=== PATIENT | male | born 1970 | race Caucasian/White ===

== ENCOUNTER → 2021-06-25 | Outpatient (CLI) | LOC: LABNPT 08:28 | PROVIDERS: ATTEND Orthopaedic Surgery | DX: Z01.812 Encounter for preprocedural laboratory examination (principal); Z20.822 Contact with and (suspected) exposure to COVID-19 | CPT/HCPCS: 87635; 87636 ==

== ENCOUNTER → 2021-06-30 | Outpatient (CLI) | payer OTHER | LOC: LABNPT 08:13 | PROVIDERS: ATTEND Internal Medicine | DX: Z20.822 Contact with and (suspected) exposure to COVID-19 (principal) | CPT/HCPCS: 87636 ==

== ENCOUNTER 2022-07-09 05:34 | Outpatient (CLI) | payer OTHER ==
[~2022-07-09] VITALS: Ht 172.7 cm; Wt 79.4 kg
[2022-07-09] MEDS ORDERED: MAGN1TAB31 PO (11:45)
[2022-07-09] MEDS ORDERED: PANT40TA52 PO (11:45)
[2022-07-09] MEDS ORDERED: ESCI20TA PO (11:45)
[2022-07-09] MEDS ORDERED: LANS15CA PO (11:45)
[2022-07-09] MEDS ORDERED: CLON0.252 PO (11:45)
== END 2022-07-09 11:52 | disposition home or self-care (01) ==
LOC: PREOP 05:34
PROVIDERS: ATTEND Internal Medicine
DX: Z01.818 Encounter for other preprocedural examination (principal)

== ENCOUNTER 2022-07-16 10:40 | Day surgery (SDC) | payer OTHER ==
--- NOTE | 2022-07-09 07:20 | HISTORY AND PHYSICAL ---
PANENDOSCOPY HISTORY AND PHYSICAL HISTORY OF PRESENT ILLNESS: The patient is a 51-year-old white male who reports at least a 3-year history of significant reflux symptoms. This is despite taking pantoprazole b.i.d. He had a recent flare 2 or 3 weeks ago reporting burning sensation that radiates up to the back of the throat and will sometimes have a bad taste in the back of his mouth associated with this. Food initially makes it better, but then usually within minutes of stopping, symptoms will recur. He will get some temporary benefit from Gaviscon, but he does not like the taste. He had an EGD done three years ago that he reports one biopsy from the antrum was obtained because of some mild appearing gastritis that he was Helicobacter negative at that time. He does not believe that any esophageal biopsies were obtained. Does not recall whether or not a hiatal hernia was noted. He has not previously accomplished colonoscopy. He does not take aspirin or nonsteroidal medication. He has been having some difficulty with sleep. There has been a question about a sleep disorder, possible narcolepsy. He is in the process of getting approval for sleep latency test. He has a history of generalized anxiety and he thinks that this is worse off of Lexapro that he had only stopped over concerns that might have an impact on a sleep latency study. He denies melena or bright red blood per rectum or change in bowel habit. PHYSICAL EXAMINATION: GENERAL: Reveals an anxious white male in no acute distress, otherwise. VITAL SIGNS: Weight was down 6 pounds from 3 months ago to 175. Blood pressure 130/80. CHEST: Clear. CARDIOVASCULAR: Reveals regular rate and rhythm without murmur, S3, or S4. ABDOMEN: There is mild epigastric discomfort to palpation without rebound or guarding. No mass or organomegaly noted. ABDOMEN: Soft, supple, no bruits noted. Bowel sounds positive. ASSESSMENT AND PLAN: The patient is undergoing diagnostic EGD for evaluation of symptoms suspicious for gastroesophageal reflux, refractory to PPI therapy. Nonulcer dyspepsia of the differential as is eosinophilic esophagitis, so biopsies will be obtained from the esophagus. He will also undergo his first screening colonoscopy deemed to be of average risk. Prep instructions with Plenvu were given and questions were answered. He was advised to resume Lexapro, but stop it a week prior to being set up for sleep latency study. Job ID: [id number] DocumentID: [id number] Dictated Date: 07/08/2022 16:24:25 Skein Yarn Dyer Helper Date: 07/08/2022 16:43:00 Dictated By: JUSTICE GONCALVES MD
[~2022-07-16] VITALS: Ht 173 cm; Wt 79.4 kg
[~2022-07-16 10:40] MED LIST: CLON0.252 PO; ESCI20TA PO; LANS15CA PO; MAGN1TAB31 PO; PANT40TA52 PO
[2022-07-16] MEDS ORDERED: LACTATED RINGERS 1,000 ML IV STA (10:43)
[2022-07-16] MEDS ORDERED: HURRICAINE EXT TUBE (BENZOCAINE) XX PRN (10:45)
--- NOTE | 2022-07-16 11:09 | Pre-Op Note & Conscious Sedat ---
Pre-Operative Progress Note Date H&P Reviewed: Jul 16, 2022 Time H&P Reviewed: 11:08 History & Physical: H&P Reviewed, Patient Examed, No changes noted Pre-Op Diagnosis: Gerd refractory to PPI therapy Conscious Sedation Pre-Proced ASA Score 2 For ASA 3 and 4: Consider anesthesia and medical clearance. Also, for patients with a history of failed moderate sedation consider anesthesia. Airway Lungs Heart ASA score ASA 1: a normal healthy patient ASA 2: a patient with a mild systemic disease (mid diabetes, controlled hypertension, obesity ASA 3: a patient with a severe systemic disease that limits activity (angina, COPD, prior Myocardial infarction) ASA 4: a patient with an incapacitating disease that is a constant threat to life (CHF, renal failure) ASA 5: a moribund patient not expected to survive 24 hrs. (ruptured aneurysm) ASA 6: a declared brain- patient whose organs are being harvested. For emergent operations, add the letter E after the classification Mallampati Classification Grade 2 Sedation Plan Analgesia, Amnesia, Plan communicated to team members, Discussed options with patient/fam, Discussed risks with patient/fam The patient is an appropriate candidate to undergo the planned procedure, sedation, and anesthesia. The patient immediately re-assessed prior to indication. JUSTICE GONCALVES MD Jul 16, 2022 11:09
[2022-07-16 11:25] VITALS: BP 122/76
[2022-07-16] MEDS ORDERED: PROPOFOL INJECTION 50 ML IV ONE (11:56)
[2022-07-16] MEDS ORDERED: MIDAZOLAM 2 MG/2 ML (VERSED) VIAL ONE (11:56)
[2022-07-16] MEDS ORDERED: SIMETHICONE 40 MG/0.6 ML (MYLICON DROPS) 30 ML BTL ONE (12:08)
--- NOTE | 2022-07-16 12:31 | Progress Note-Post Operative ---
Post-Procedure Note Physician (s)/Guest Services Ambassador (s) Physician JUSTICE GONCALVES MD Pre-Procedure Diagnosis Pre-Procedure Diagnosis: Gerd refractory to PPI therapy Post-Procedure Diagnosis Post-operative diagnosis: Prior to undergoing colonoscopy digital rectal evaluation was performed. Anal sphincter tone was normal and the perianal reflex was intact. Prostate is normal in size and a nodular on digital evaluation. No abnormalities noted on digital inspection anal canal or distal rectal vault. The colonoscope was inserted into the rectum and under direct physician advanced the cecum. The cecum was identified by identification of the ileocecal valve and cecal strap. Photographic dictation obtained. A careful suction was made as the colonoscope was withdrawn. Quality the prep was good. Findings 1 to millimeter sessile hyperplastic polyp was removed via cold forceps from the distal rectum. No other rectal abnormalities are appreciated. The sigmoid colon descending colon splenic flexure transverse colon hepatic flexure ascending colon and cecum were unremarkable. No evidence of diverticular disease was noted. Assessment: 1. 1 diminutive hyperplastic appearing polyp was removed from the distal rectum via cold forceps. This Was and otherwise normal colonoscopy to the cecum. Would advocate consideration for repeat screening colonoscopy in 10 years. Digital evaluation of the prostate was unremarkable. JUSTICE GONCALVES MD Jul 16, 2022 12:31
[2022-07-16 12:33] VITALS: BP 101/64
[2022-07-16 12:38] VITALS: BP 101/63
[2022-07-16 12:45] VITALS: BP 101/69
[2022-07-16 13:26] VITALS: BP 104/65
== END 2022-07-16 13:34 | disposition home or self-care (01) ==
LOC: ENDO 10:40
PROVIDERS: ATTEND Internal Medicine
DX: Z12.11 Encounter for screening for malignant neoplasm of colon (principal); K62.1 Rectal polyp; K21.9 Gastro-esophageal reflux disease without esophagitis; F41.1 Generalized anxiety disorder; Z79.899 Other long term (current) drug therapy

== ENCOUNTER 2022-07-21 05:55 | Outpatient (CLI) | payer OTHER ==
[~2022-07-21] VITALS: Ht 172.7 cm; Wt 77.1 kg
--- NOTE | 2022-07-21 08:26 | Anesthesia-General Post-Op ---
MAC Significant Intra-Op Events Notes postop mac anesthesia addendum on 07/06/22 at 1300 Patient Condition Mental Status/LOC: Same as Preop Cardiovascular: Satisfactory Nausea/Vomiting: Absent Respiratory: Satisfactory Pain: Controlled Complications: Absent Post Op Complications Complications None Follow Up Care/Instructions Patient Instructions None needed. Anesthesiology Discharge Order Discharge Order Patient is doing well, no complaints, stable vital signs, no apparent adverse anesthesia problems. No complications reported per nursing. BLUE WELLS CRNA Jul 21, 2022 08:26
== END 2022-07-21 12:32 | disposition home or self-care (01) ==
LOC: PREOP 05:55
PROVIDERS: ATTEND Internal Medicine
DX: Z01.818 Encounter for other preprocedural examination (principal)

== ENCOUNTER 2022-07-30 09:33 | Day surgery (SDC) | payer OTHER ==
[~2022-07-30] VITALS: Ht 172.7 cm; Wt 77.1 kg
[2022-07-30] MEDS ORDERED: LACTATED RINGERS 1,000 ML IV STA (09:48)
[2022-07-30 09:54] VITALS: BP 110/84
[2022-07-30] MEDS ORDERED: HURRICAINE EXT TUBE (BENZOCAINE) XX PRN (10:00)
--- NOTE | 2022-07-30 10:08 | Pre-Op Note & Conscious Sedat ---
Pre-Operative Progress Note Date H&P Reviewed: Jul 30, 2022 Time H&P Reviewed: 10:07 History & Physical: H&P Reviewed, Patient Examed, No changes noted Pre-Op Diagnosis: refractory GERD and screening colon Conscious Sedation Pre-Proced ASA Score 2 For ASA 3 and 4: Consider anesthesia and medical clearance. Also, for patients with a history of failed moderate sedation consider anesthesia. Airway Lungs Heart ASA score ASA 1: a normal healthy patient ASA 2: a patient with a mild systemic disease (mid diabetes, controlled hypertension, obesity ASA 3: a patient with a severe systemic disease that limits activity (angina, COPD, prior Myocardial infarction) ASA 4: a patient with an incapacitating disease that is a constant threat to life (CHF, renal failure) ASA 5: a moribund patient not expected to survive 24 hrs. (ruptured aneurysm) ASA 6: a declared brain- patient whose organs are being harvested. For emergent operations, add the letter E after the classification Mallampati Classification Grade 2 Sedation Plan Analgesia, Amnesia, Plan communicated to team members, Discussed options with patient/fam, Discussed risks with patient/fam The patient is an appropriate candidate to undergo the planned procedure, sedation, and anesthesia. The patient immediately re-assessed prior to indication. JUSTICE GONCALVES MD Jul 30, 2022 10:07
[2022-07-30] MEDS ORDERED: proPOfol 200 MG/20 ML (DIPRIVAN) VIAL IV ONE (10:30)
[2022-07-30] MEDS ORDERED: MIDAZOLAM 2 MG/2 ML (VERSED) VIAL ONE (10:30)
[2022-07-30 10:54] VITALS: BP 104/65
[2022-07-30 10:59] VITALS: BP 104/66
--- NOTE | 2022-07-30 11:01 | Progress Note-Post Operative ---
Post-Procedure Note Physician (s)/Correctional Sergeant (s) Physician JUSTICE GONCALVES MD Pre-Procedure Diagnosis Pre-Procedure Diagnosis: refractory GERD and screening colon Post-Procedure Diagnosis Post-operative diagnosis: The endoscope was inserted into the oral cavity and under direct visualization the esophagus is intubated. The endoscope was passed down the esophagus to the stomach and second portion of the duodenum. A careful inspection was made as the endoscope was withdrawn. Findings: The posterior pharynx epiglottis arytenoid aperture and true and false vocal folds were unremarkable to visual inspection. The proximal mid and distal esophagus are unremarkable except for laxity of the lower esophageal sphincter and evidence for a small sliding hiatal hernia. The Z-line was distinct and unremarkable. Biopsies were obtained from the mid and distal esophagus for evaluation of reflux change and eosinophilic esophagitis. There was no evidence for furling of the esophagus. The cardia was unremarkable 1 small fundal appearing polyp was noted along the greater curvature midportion. There is mild antral erythema biopsies obtained submitted for Helicobacter and histopathology. No evidence for ulceration or erosions were noted. The pylorus pyloric channel of the duodenal bulb and second portion of the duodenum were unremarkable. Assessment: There was no evidence for erosive esophagitis today. Findings suggest sphincter laxity of the lower esophageal sphincter with a small sliding hiatal hernia but no evidence of erosive esophagitis. There is evidence for mild antral gastritis a biopsy was obtained and submitted for Helicobacter histopathology evaluation. Biopsies from the esophagus were submitted for evaluation of eosinophilic esophagitis with further recommendations pending biopsy evaluation. In the interim patient is to continue 40 mg pantoprazole twice daily. with complaints of sleep amintenance in somnia and possible nonulcer dyspepsia amitryptline will be innitiated at 10-20mg 1-2 hours before Hs. Side effects discussed. JUSTICE GONCALVES MD Jul 30, 2022 11:01
[2022-07-30 11:04] VITALS: BP 106/68
[2022-07-30 11:10] VITALS: BP 108/69
[2022-07-30] MEDS ORDERED: AMT10T PO (11:26)
[2022-07-30 11:27] VITALS: BP 108/69
--- NOTE | 2022-07-30 12:36 | Anesthesia-General Post-Op ---
MAC Patient Condition Mental Status/LOC: Same as Preop Cardiovascular: Satisfactory Nausea/Vomiting: Absent Respiratory: Satisfactory Pain: Controlled Complications: Absent Post Op Complications Complications None Follow Up Care/Instructions Patient Instructions None needed. Anesthesiology Discharge Order Discharge Order Patient is doing well, no complaints, stable vital signs, no apparent adverse anesthesia problems. No complications reported per nursing. EDGAR KRISHNAN CRNA Jul 30, 2022 12:36
== END 2022-07-30 11:35 | disposition home or self-care (01) ==
LOC: ENDO 09:33
PROVIDERS: ATTEND Internal Medicine
DX: K44.9 Diaphragmatic hernia without obstruction or gangrene (principal); K31.7 Polyp of stomach and duodenum; K29.70 Gastritis, unspecified, without bleeding; K21.9 Gastro-esophageal reflux disease without esophagitis